=== PATIENT | female | born 1950 | race African-American/Black ===

== ENCOUNTER 2025-04-02 15:00 | Emergency (ER) | payer OTHER ==
[~2025-04-02] VITALS: Ht 165.1 cm; Wt 93.0 kg
[2025-04-02 15:03] VITALS: O2SAT 100
[2025-04-02] MEDS: HYDROCODONE/ACETAMINOPHEN 5/325MG TABLET PO ONE (15:57)
[2025-04-02 18:33] LABS: CLARITY URINE CLEAR (CLEAR); COLOR URINE YELLOW (YELLOW); GLUCOSE URINE NEGATIVE (NEGATIVE); KETONES URINE NEGATIVE (NEGATIVE); LEUKOCYTE ESTERASE URINE TRACE (NEGATIVE); NITRITE URINE NEGATIVE (NEGATIVE); OCCULT BLOOD URINE 1+ (NEGATIVE); PH URINE 6.0 (4.5-8.0); PROTEIN URINE NEGATIVE (NEGATIVE); SPECIFIC GRAVITY URINE 1.009 (1.005-1.030); UROBILINOGEN URINE 0.2 E.U./dL (0.2-1.0)
[2025-04-02 18:52] LABS: BACTERIA URINE TRACE; SQUAMOUS EPITHELIAL CELL URINE FEW /lpf (RARE/1+)
[2025-04-02 19:55] LABS: BASOPHILS % 0.2 % (0.0-2.0); EOSINOPHILS % 0.1 % (0.0-5.0); HEMATOCRIT. 39.3 % (36.0-48.0); HEMOGLOBIN. 12.8 g/dL (12.0-16.0); LYMPHOCYTES % 13.8 % (20.0-50.0); MEAN PLATELET VOLUME 9.0 fl (7.4-10.4); MONOCYTES % 9.0 % (2.0-8.0); NEUTROPHILS % 76.9 % (40.0-76.0); PLATELET 200 x1000/uL (130-400); RED BLOOD CELL COUNT 4.62 mill/uL (4.2-5.4); RED CELL DISTRIBUTION WIDTH 15.1 % (11.6-14.6)
[2025-04-02 20:05] VITALS: TEMP 36.9
[2025-04-02] MEDS: MORPHINE SULFATE 2 MG/ML INJ (NOT FOR IM USE) IV ONE (20:06)
[2025-04-02] MEDS: ONDANSETRON HCL 4MG/2ML INJ IV ONE (20:06)
[2025-04-02 20:09] LABS: CREATININE 1.1 mg/dL (0.6-1.0)
[2025-04-02 20:10] LABS: UREA NITROGEN BLOOD 9.0 mg/dL (9-23)
[2025-04-02] MEDS: CEFTRIAXONE 1GM/50ML 50 ML IV ONE (22:26)
[2025-04-02 22:30] VITALS: BP 153/85; PULSE 77; RESP 16; O2SAT 97
== END 2025-04-02 22:43 | disposition short-term general hospital (02) ==
LOC: ER 15:00 → CMPBEDREQ 23:11
DX: M54.9 Dorsalgia, unspecified (principal); N39.0 Urinary tract infection, site not specified
CPT/HCPCS: 99285; 96365; 96375; 80048; 81003; 85025; 36415; 72100; J0696; J2405; J2270